=== PATIENT | male | born 1995 | race Hispanic/Latino ===

== ENCOUNTER 2019-07-30 18:43 | Emergency (ER) | payer SELFPAY ==
[~2019-07-30 18:43] MED LIST: NAPROSYN375 MG PO; NO HOME MEDS; TRIAMCINOLON0.13 EX
[2019-07-30 18:55] VITALS: BP 144/94
== END 2019-07-30 20:32 | disposition left against medical advice (07) | DRG 951 ==
LOC: ED 18:43 → LWOBS 19:37
DX: Z53.21 Procedure and treatment not carried out due to patient leaving prior to being seen by health care provider (principal)